=== PATIENT | male | born 1985 | race Caucasian/White ===

== ENCOUNTER 2019-06-19 10:02 | Emergency (ER) | payer OTHER ==
[~2019-06-19] VITALS: Ht 188 cm; Wt 106.6 kg
[~2019-06-19 10:02] MED LIST: AUGMENTIN 875875 MG PO; BACTROBAN22 GM TP; FLEXERIL PO; HYDROCODONE-AP1 EAC6 PO; NOHOMEMEDICATIONS; NORCO 5-325 TA1 EAC1 PO
[2019-06-19 10:40] LABS: AMP/METHAMP Negative (Negative); BARBITURATES Negative (Negative); BENZODIAZEPINES Negative (Negative); COCAINE Negative (Negative); METHADONE Negative (Negative); OPIATES Negative (Negative); PCP Negative (Negative)
[2019-06-19 10:50] LABS: ABSOLUTE NEUTROPHILS 2.9 thou/uL (1.4-8.2); BASOPHILS 0.7 % (0.0-2.0); EOSINOPHILS 3.2 % (0.0-3.0); HEMATOCRIT 45.5 % (42.0-52.0); HEMOGLOBIN 15.4 gm/dL (14.0-18.0); LYMPHOCYTES 32.5 % (24.0-44.0); MCH 29.4 pg (26.0-34.0); MCHC 33.8 g/dL (28.0-37.0); MONOCYTES 8.4 % (1.0-8.0); PLATELET COUNT 245 thou/uL (150-400); POLYS 55.2 % (36.0-66.0); RBC 5.23 mil/uL (4.50-6.00); RDW 12.9 % (10.5-14.5); WBC 5.3 thou/uL (4.0-11.0)
[2019-06-19 10:53] LABS: ANION GAP 9 mmol/L (7-16); BUN 18 mg/dL (7-18); CHLORIDE 102 mmol/L (98-107); CO2 29 mmol/L (21-32); CREATININE 1.1 mg/dL (0.7-1.3); GLUCOSE 100 mg/dL (74-106); SODIUM 140 mmol/L (136-145)
[2019-06-19 11:03] LABS: ALBUMIN 4.3 g/dL (3.4-5.0); APTT 28.2 Seconds (24.5-32.8); PROTIME 10.3 Seconds (9.3-11.4); SGOT 21 U/L (15-37); SGPT 37 U/L (30-65); TOTAL BILIRUBIN 0.4 mg/dL (<0.1-1.0); TOTAL PROTEIN 7.6 g/dL (6.4-8.2)
[2019-06-19 11:04] LABS: TROPONIN-I <0.06 ng/mL (<0.06)
[2019-06-19] MEDS ORDERED: ASA81BEC PO (14:45)
[2019-06-19] MEDS ORDERED: TRILEPTAL300 MG PO (14:45)
[2019-06-19 14:57] VITALS: BP 144/57
--- NOTE | 2019-06-20 12:34 | EKG ---
[facility] [place] [address] ELECTROCARDIOGRAM REPORT Name: JIAN LEWIS Room #: 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 : 1985 Requested By: Joseline Lombardi Order Number: [id number] MD: Mendez Duran Measurements Intervals [place] Rate: 85 P: 116 ND: 124 QRS: -26 QRSD: 117 T: -34 QT: 366 QTc: 436 Interpretive Statements Sinus rhythm T-wave abnormality Repolarization abnormality No previous ECG available for comparison Electronically Signed On 06-20-2019 8:48:31 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
--- NOTE | 2019-06-20 12:34 | EKG ---
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: [facility] : 1985 Requested By: Joseline Lombardi Order Number: [id number] MD: Mendez Duran Measurements Intervals [place] Rate: 74 P: 57 UT: 132 QRS: -6 QRSD: 118 T: -38 QT: 415 QTc: 461 Interpretive Statements Sinus rhythm Abnrm T, consider ischemia, anterolateral lds No previous ECG available for comparison Electronically Signed On 06-19-2019 17:32:59 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 /EPI
== END 2019-06-19 14:59 | disposition home or self-care (01) ==
LOC: ER 10:02
PROVIDERS: Emergency Medicine Emergency Medical Services
DX: R55 Syncope and collapse (principal); R56.9 Unspecified convulsions; F17.210 Nicotine dependence, cigarettes, uncomplicated; Z88.1 Allergy status to other antibiotic agents